=== PATIENT | female | born 1990 | race Caucasian/White ===

== ENCOUNTER 2019-02-25 13:39 | Emergency (ER) | payer OTHER ==
[~2019-02-25] VITALS: Ht 162.6 cm; Wt 69.4 kg
[~2019-02-25 13:39] MED LIST: PERCOCET 5/3251 TAB PO; PRENATAL + DHA1 EAC1
[2019-02-25] MEDS ORDERED: DICY20TA (14:03)
[2019-02-25] MEDS ORDERED: ZANTAC300 MG (14:03)
[2019-02-25] MEDS ORDERED: TOPROL XL50 M1 (14:03)
== END 2019-02-25 21:46 | disposition home or self-care (01) ==
LOC: ER 13:39
DX: R10.11 Right upper quadrant pain (principal)